=== PATIENT | male | born 1985 | race Caucasian/White ===

== ENCOUNTER 2024-01-13 13:36 | Emergency (ER) | payer MEDICAID ==
[~2024-01-13] VITALS: Ht 172.7 cm; Wt 68.2 kg
[2024-01-13] MEDS ORDERED: NO HOME MEDS (13:57)
[2024-01-13] MEDS: LIDOcaine 1% W/epiNEPHrine 1:100,000 20ml vial SQ ONE (14:01)
[2024-01-13] MEDS ORDERED: diph,pertuss (acell), tet (DTaP-PEDs)/PF (PEDIATRIC) 0.5ml syringe IMVAC ONE (14:25)
[2024-01-13] MEDS ORDERED: iohexol 350MG/ML 100ml bottle IV ONE (14:31)
[2024-01-13 14:54] LABS: EOSINOPHILS # (AUTO) 0.2 X10'3 (0-0.9); HEMOGLOBIN 17.2 g/dl (14.0-17.9); LYMPHOCYTES # (AUTO) 3.3 X10'3 (1.1-4.8); MONOCYTES # (AUTO) 0.4 X10'3 (0-0.9); NEUTROPHILS # (AUTO) 3.5 X10'3 (1.8-7.7)
[2024-01-13 14:55] LABS: BASOPHILS % (AUTO) 0.4 % (0-1); EOSINOPHILS % (AUTO) 2.4 % (0-6); HEMATOCRIT 50.8 % (42.0-52.0); LYMPHOCYTES % (AUTO) 44.4 % (21-51); MEAN CORPUSCULAR HGB CONC 33.9 g/dL (33.0-36.5); MEAN CORPUSCULAR VOLUME 97.5 FL (78-98); MEAN PLATELET VOLUME 7.8 FL (7.4-10.4); MONOCYTES % (AUTO) 5.3 % (2-12); NEUTROPHILS % (AUTO) 47.5 % (42-75); PLATELET COUNT 323 X10'3 (140-440); RED BLOOD COUNT 5.21 X10'6 (4.70-6.10); RED CELL DISTRIBUTION WIDTH 13.6 % (11.5-14.5); WHITE BLOOD COUNT 7.3 X10'3 (4.5-11.0)
[2024-01-13] MEDS: cefazolin 2gm/D5W 100mL 100 ML IV STA (15:07)
[2024-01-13] MEDS: normal saline 1000ML IV soln IVB ONE ×2 (15:08→16:39)
[2024-01-13] MEDS: TETanus/Pertussis (Acell)/Diphther VAC/PF (Tdap-Adult) 0.5ml syringe IMVAC ONE (15:10)
[2024-01-13 15:25] LABS: APTT 23 SECONDS (22-32); PROTHROMBIN TIME 10.3 SECONDS (9.0-12.0)
[2024-01-13 15:27] LABS: PLATELET ESTIMATE NORMAL; TOTAL CELLS COUNTED 100
[2024-01-13 15:34] LABS: BILIRUBIN,URINE NEGATIVE (Neg); CLARITY,URINE CLEAR (Clear); COLOR,URINE YELLOW (Yellow); GLUCOSE, URINE NEGATIVE (Neg); KETONES,URINE NEGATIVE (Neg); LEUKOCYTE ESTERASE ,URINE NEGATIVE (Neg); NITRITES, URINE NEGATIVE (Neg); OCCULT BLOOD,URINE NEGATIVE (Neg); PH,URINE 6.5 (4.8-8.0); PROTEIN,URINE NEGATIVE (Neg); UROBILINOGEN,URINE 0.2 E.U/dL (0.2-1.0)
[2024-01-13 15:39] LABS: ALBUMIN 4.1 G/DL (3.4-5.0); AMYLASE 55 U/L (25-115); ANION GAP 15 (8-16); BLOOD UREA NITROGEN 11 MG/DL (7-18); BUN/CREATININE RATIO 10.8 (10.0-20.0); CALCIUM 8.9 MG/DL (8.5-10.1); CHLORIDE 106 MMOL/L (99-107); CKMB RELATIVE INDEX 0.5 RATIO (0-2.5); CREATINE KINASE 865 U/L (39-308); CREATINE KINASE MB 4.1 ng/ml (0.3-3.6); CREATININE 1.02 MG/DL (0.60-1.10); GLUCOSE 159 MG/DL (70-104); LIPASE 39 U/L (16-77); POTASSIUM 3.5 MMOL/L (3.5-5.1); SODIUM 144 MMOL/L (135-145); TOTAL CARBON DIOXIDE 22.9 MMOL/L (24-32); eCRCL 97 ML/MIN; eGFR 83 ML/MIN
[2024-01-13 15:41] LABS: ETHANOL 359 MG/DL (<10)
[2024-01-13 15:44] LABS: UA COLLECTION TYPE NON-SPECIFIED
[2024-01-13 15:50] LABS: URINE AMPHETAMINE SCREEN NEGATIVE (Neg); URINE BARBITUATE SCREEN NEGATIVE (Neg); URINE BENZODIAZEPINES SCREEN NEGATIVE (Neg); URINE CANNABINOID SCREEN POSITIVE (Neg); URINE COCAINE SCREEN POSITIVE (Neg); URINE METHADONE SCREEN NEGATIVE (Neg); URINE OPIATE SCREEN NEGATIVE (Neg); URINE PHENCYCLIDINE SCREEN NEGATIVE (Neg)
[2024-01-13 16:35] VITALS: TEMP 96.8
[2024-01-13] MEDS: ondansetron/PF 4mg/2ml inj IV ONE (16:41)
[2024-01-13 17:24] LABS: HEMATOCRIT 39.9 % (42.0-52.0); HEMOGLOBIN 13.4 g/dl (14.0-17.9); MEAN CORPUSCULAR HEMOGLOBIN 32.8 PG (27.0-31.0); MEAN CORPUSCULAR HGB CONC 33.5 g/dL (33.0-36.5); MEAN CORPUSCULAR VOLUME 97.9 FL (78-98); MEAN PLATELET VOLUME 7.5 FL (7.4-10.4); PLATELET COUNT 263 X10'3 (140-440); RED BLOOD COUNT 4.08 X10'6 (4.70-6.10); RED CELL DISTRIBUTION WIDTH 13.6 % (11.5-14.5); WHITE BLOOD COUNT 14.1 X10'3 (4.5-11.0)
[2024-01-13] MEDS: metoclopramide 5 mg/ml inj IV ONE (18:25)
[2024-01-13] MEDS: LIDOcaine 1% W/epiNEPHrine 1:100,000 20ml vial IJ ONE ×2 (18:28→18:29)
[2024-01-13 20:10] VITALS: BP 109/66; PULSE 72; RESP 16; O2SAT 94
[2024-01-13] MEDS: bacitracin 15gm ointment TP SCH (20:12)
== END 2024-01-13 20:12 | disposition home or self-care (01) ==
LOC: ER 13:36
DX: S51.012A Laceration without foreign body of left elbow, initial encounter (principal); S51.812A Laceration without foreign body of left forearm, initial encounter; F10.129 Alcohol abuse with intoxication, unspecified; M54.2 Cervicalgia; R40.4 Transient alteration of awareness; R79.1 Abnormal coagulation profile; M79.602 Pain in left arm; R10.9 Unspecified abdominal pain; X58.XXXA Exposure to other specified factors, initial encounter; Y93.89 Activity, other specified; Y92.89 Other specified places as the place of occurrence of the external cause; Y99.8 Other external cause status; Y90.9 Presence of alcohol in blood, level not specified
CPT/HCPCS: 12034; 36415; 70450; 71250; 72125; 73206; 74176; 80048; 80305; 80320; 81003; 82150; 82550; 82553; 83690; 83874; 84484; 85007; 85025; 85027; 85610; 85730; 86885; 86900; 86901; 96361; 96365; 96375; 99285; A6222; J0690; J2405; J2765; J7030; Q9967; A4565; A6258; A6446; A6449

== ENCOUNTER 2024-01-24 09:25 | Emergency (ER) | payer MEDICAID ==
[~2024-01-24] VITALS: Ht 172.7 cm; Wt 70.0 kg
[~2024-01-24 09:25] MED LIST: NO HOME MEDS
[2024-01-24 09:29] VITALS: BP 132/72; PULSE 89; RESP 18; O2SAT 99
[2024-01-24 09:58] VITALS: TEMP 97.8
== END 2024-01-24 10:08 | disposition home or self-care (01) ==
LOC: ER 09:25
DX: S41.112D Laceration without foreign body of left upper arm, subsequent encounter (principal); X58.XXXD Exposure to other specified factors, subsequent encounter
CPT/HCPCS: 99281

== ENCOUNTER 2024-10-10 01:26 | Emergency (ER) | payer MEDICAID, OTHER ==
[~2024-10-10] VITALS: Ht 172.7 cm; Wt 72.7 kg
[2024-10-10 01:54] VITALS: PULSE 118
[2024-10-10 01:56] VITALS: BP 129/98; RESP 18; TEMP 97.7; O2SAT 100
== END 2024-10-10 02:15 ==
LOC: ER 01:27
DX: Z02.89 Encounter for other administrative examinations (principal); V89.2XXA Person injured in unspecified motor-vehicle accident, traffic, initial encounter; Y92.481 Parking lot as the place of occurrence of the external cause; Y93.89 Activity, other specified; Y99.8 Other external cause status
CPT/HCPCS: 99283

== ENCOUNTER 2024-12-04 15:08 | Emergency (ER) | payer OTHER ==
[~2024-12-04] VITALS: Ht 175.3 cm; Wt 84.1 kg
--- NOTE | 2024-12-04 15:17 | Physician Documentation ---
History of Present Illness ~ General Stated Complaint: MED CLEARANCE Time Seen by MD: 15:10 Primary Medical Doctor: None History of Present Illness Initial Comments 39 year old male presents to the ED via [employer]. Requesting medical clearance as of when the patient was arrest and he will was nodding off. Received unknown amount of intranasal naloxone and IM injection of Narcan. Positive affect. Patient presents here in the ED alert oriented mildly agitated deny any fentanyl usage. It is the "big bag of a white substance" in his car was a pancake batter. Medication Reconciliation Allergies: Coded Allergies: No Known Allergies (Unverified , 12/04/24) Miscellaneous Medications Home Med List (No Home Medications), (Reported) Review of Systems All Other Systems at this time: Reviewed and Negative ROS As stated above in the HPI, otherwise all systems are reviewed and negative. Physical Exam Physical Exam Physical Exam General: Alert, no apparent distress. HEENT: PERRL, EOMI, no injection, moist mucous membranes. Respiratory: Lungs clear, no respiratory distress. Cardiovascular: Regular rate and rhythm, no murmurs. Gastrointestinal: Soft, nontender, nondistended. Bowels sounds present. Neurologic: Oriented x4. Psychiatric: Normal mood and affect. Skin: Normal color, warm and dry. No edema, no ecchymosis. Progress Results/Orders Results/Orders Vital Signs 12/04/24 12/04/24 15:33 15:43 Temp 97.0 97.0 Pulse 101 Resp 15 B/P (MAP) 158/110 Pulse Ox 97 Medical Decision Making Findings Has been alert oriented and mildly defiant throughout his stay in the ED. he has Narcan over 1 hour ago which leads me to believe he has mostly metabolized Narcan and continues to maintain a patent airway without any notable somnolence. Medically cleared this patient as he meets criteria for incarceration Departure Disposition: HOME / SELF CARE / HOMELESS Impression: Primary Impression: General medical exam Additional Impression Text This patient was fully evaluated and interviewed regarding concerns over suspected opioid ingestion. He remained alert oriented and moderately defiant. Not see any reason not to medically clear him for incarceration Condition: Stable Discharge Instructions: Opioid Use Disorder Additional Instructions: This patient was fully evaluated and interviewed regarding concerns over suspected opioid ingestion. He remained alert oriented and moderately defiant. Not see any reason not to medically clear him for incarceration Referrals: NO PRIMARY CARE PROVIDER (PCP) Education Educated: Patient Signature Scribe Signature: g Attestation: The note accurately reflects work and decisions made by me.Nickolas Stapleton NP 12/04/24 23:50 NICKOLAS TEE NP December 04, 2024 15:17
[2024-12-04 15:33] VITALS: BP 158/110; PULSE 101; RESP 15; O2SAT 97
[2024-12-04 15:43] VITALS: TEMP 97
== END 2024-12-04 15:55 | disposition home or self-care (01) ==
LOC: ER 15:09
DX: Z00.8 Encounter for other general examination (principal)
CPT/HCPCS: 99281